=== PATIENT | male | born 1945 | race Caucasian/White ===

== ENCOUNTER 2023-02-15 11:42 | Inpatient (IN) | payer OTHER ==
[2023-02-15 12:44] LABS: Bilirubin Neg (Negative); Blood, Urine 25 (Negative); Clarity Slightly Cloudy (Clear); Glucose, Urine (Dipstick) Normal (Negative); Ketone, Urine Negative (Negative); Leukocyte 500 (Negative); Nitrite Negative (Negative); Protein, Urine (Dipstick) 30 mg/dl (Neg-Trace); Urobilinogen Normal mg/dL (Less than 2); pH, Urine 6.5 (5.0-9.0)
[2023-02-15 12:53] LABS: #Eosinphils 0.1 10x3/uL (0.0-0.5); #Monocytes 0.5 10x3/uL (0.0-1.1); #Neutrophils 6.9 10x3/uL (1.5-8.4); %Basophils 0.3 % (0.0-2.0); %Lymphocytes 12.9 % (18.0-47.0); %Monocytes 5.9 % (0.0-10.0); %Neutrophils 79.3 % (40.0-75.0); Hemoglobin 13.3 g/dL (13.5-17.5); Mean Corpuscular HGB CONC 34.2 g/dL (32.0-36.0); Mean Corpuscular Volume 87.8 fl (81.2-95.1); Mean Platelet Volume 9.1 fl (7.4-10.4); Platelet Count 254 10x3/uL (150-450); RBC Distribution Width 12.6 % (11.5-14.5); Red Blood Cell (RBC) Count 4.43 10x6/uL (4.32-5.72); White Blood Cell (WBC) Count 8.7 10x3/uL (3.5-10.5)
[2023-02-15] MEDS ORDERED: Meclizine HCl 25 MG TAB ONE (13:02)
[2023-02-15 13:12] LABS: ALT (SGPT) 18 U/L (8-55); AST (SGOT) 25 U/L (5-34); Albumin 4.2 g/dL (3.4-4.8); Alkaline Phosphatase 81 U/L (40-110); Anion Gap 19 mmol/L (10-20); BUN (Urea Nitrogen) 23 mg/dL (8.4-25.7); Bilirubin, Total 0.5 mg/dL (0.2-1.2); Calc. Creatinine Clearance 0 mL/min (70-130); Calcium 8.6 mg/dL (7.8-10.44); Carbon Dioxide 19 mmol/L (23-31); Chloride 98 mmol/L (98-107); Estimated GFR 55; Globulin 3.2 g/dL (2.4-3.5); Glucose 103 mg/dL (83-110); Lipase 35 U/L (8-78); Potassium 4.6 mmol/L (3.5-5.1); Protein, Total 7.4 g/dL (5.8-8.1); Sodium 131 mmol/L (136-145)
[2023-02-15 13:22] LABS: Bacteria/HPF 1+ HPF (None Seen); CAUTI Indications for Culture < 2yrs of age; Transitional Epithelial 0-3 HPF (None Seen); WBC/HPF Greater than 50 HPF (0-3); White Blood Cell Cast 0-3 LPF (None Seen)
[2023-02-15 13:24] LABS: Urine Culture Reflex Yes Yes
[2023-02-15 13:34] LABS: CKMB 2.1 ng/mL (0-6.6)
[2023-02-15] MEDS ORDERED: cefTRIAXone (ROCEPHIN) 1 GM VIAL ONE (15:54)
[2023-02-15] MEDS ORDERED: Acetaminophen 325 MG TAB PO PRN (17:31)
[2023-02-15] MEDS ORDERED: Ondansetron PF 4 MG/2 ML Vial IVP PRN (17:31)
[2023-02-15] MEDS ORDERED: Meclizine HCl 12.5 MG TAB PO PRN (17:32)
[2023-02-15 19:17] LABS: Troponin I 0.076 ng/mL (< 0.028)
[2023-02-15] MEDS ORDERED: Amlodipine 10 MG TAB PO SCH (19:45)
[2023-02-15] MEDS: Heparin 5,000 UNITS/ML VIAL SC SCH (22:02)
[2023-02-15] MEDS: Sodium Chloride 0.9% 1,000 ML IV SCH (22:04)
[2023-02-16 03:30] VITALS: BMI 31.9
[2023-02-16 04:10] LABS: #Eosinphils 0.1 10x3/uL (0.0-0.5); #Monocytes 0.5 10x3/uL (0.0-1.1); #Neutrophils 3.7 10x3/uL (1.5-8.4); %Basophils 0.7 % (0.0-2.0); %Eosinophils 2.4 % (0.0-6.0); %Lymphocytes 24.2 % (18.0-47.0); %Monocytes 8.4 % (0.0-10.0); %Neutrophils 64.1 % (40.0-75.0); Hemoglobin 13.1 g/dL (13.5-17.5); Mean Corpuscular HGB CONC 34.9 g/dL (32.0-36.0); Mean Corpuscular Hemoglobin 30.4 pg (27.0-33.0); Mean Platelet Volume 8.9 fl (7.4-10.4); Platelet Count 212 10x3/uL (150-450); RBC Distribution Width 12.6 % (11.5-14.5); Red Blood Cell (RBC) Count 4.31 10x6/uL (4.32-5.72); White Blood Cell (WBC) Count 5.7 10x3/uL (3.5-10.5)
[2023-02-16 04:22] LABS: Anion Gap 13 mmol/L (10-20); BUN (Urea Nitrogen) 18 mg/dL (8.4-25.7); Calc. Creatinine Clearance 77 mL/min (70-130); Calcium 8.9 mg/dL (7.8-10.44); Carbon Dioxide 25 mmol/L (23-31); Chloride 104 mmol/L (98-107); Estimated GFR 66; Glucose 98 mg/dL (83-110); Potassium 4.2 mmol/L (3.5-5.1); Sodium 138 mmol/L (136-145)
[2023-02-16] MEDS: Amlodipine 10 MG TAB PO SCH (08:48)
[2023-02-16] MEDS: hydrALAZINE 25 MG TAB PO SCH ×3 (08:48→19:55)
[2023-02-16] MEDS: Lisinopril 20 MG TAB PO SCH (08:48)
[2023-02-16] MEDS: Heparin 5,000 UNITS/ML VIAL SC SCH ×3 (08:48→19:53)
[2023-02-16] MEDS: Hydrochlorothiazide 25 MG TAB PO SCH (08:49)
[2023-02-16] MEDS: Sodium Chloride 0.9% 1,000 ML IV SCH ×2 (08:52→22:46)
[2023-02-16] MEDS: niCARdipine 25 MG in Sodium Chloride 0.9% 250 ML 250 ML IVPB SCH (15:26)
[2023-02-16] MEDS: cefTRIAXone\\ROCEPHIN 1 GM in Sodium Chloride 0.9% 100 ML IVPB SCH (15:55)
[2023-02-16] MEDS: Ipratropium/Albuterol 3 ML NEB NEB PRN (20:49)
[2023-02-17] MEDS: niCARdipine 25 MG in Sodium Chloride 0.9% 250 ML 250 ML IVPB SCH ×4 (04:14→20:18)
[2023-02-17] MEDS: Sodium Chloride 0.9% 1,000 ML IV SCH ×2 (06:01→20:12)
[2023-02-17] MEDS: Lisinopril 20 MG TAB PO SCH (10:08)
[2023-02-17] MEDS: Amlodipine 10 MG TAB PO SCH (10:09)
[2023-02-17] MEDS: hydrALAZINE 25 MG TAB PO SCH ×3 (10:09→20:10)
[2023-02-17] MEDS: Hydrochlorothiazide 25 MG TAB PO SCH (10:09)
[2023-02-17] MEDS: Heparin 5,000 UNITS/ML VIAL SC SCH ×3 (10:09→20:10)
[2023-02-17] MEDS: Ipratropium/Albuterol 3 ML NEB NEB PRN (14:29)
[2023-02-17] MEDS: cefTRIAXone\\ROCEPHIN 1 GM in Sodium Chloride 0.9% 100 ML IVPB SCH (15:32)
[2023-02-18] MEDS: niCARdipine 25 MG in Sodium Chloride 0.9% 250 ML 250 ML IVPB SCH ×4 (01:11→15:59)
[2023-02-18] MEDS: Ipratropium/Albuterol 3 ML NEB NEB PRN ×2 (04:28→19:20)
[2023-02-18] MEDS: Hydrochlorothiazide 25 MG TAB PO SCH (07:56)
[2023-02-18] MEDS: Heparin 5,000 UNITS/ML VIAL SC SCH (07:56)
[2023-02-18] MEDS: Lisinopril 20 MG TAB PO SCH (07:57)
[2023-02-18] MEDS: hydrALAZINE 25 MG TAB PO SCH ×3 (08:02→20:53)
[2023-02-18] MEDS ORDERED: NIFEdipine XL 30 MG TAB PO SCH ×2 (09:00→14:15)
[2023-02-18] MEDS: Sodium Chloride 0.9% 1,000 ML IV SCH (10:18)
[2023-02-18] MEDS: cefTRIAXone\\ROCEPHIN 1 GM in Sodium Chloride 0.9% 100 ML IVPB SCH (16:06)
[2023-02-19] MEDS: Ipratropium/Albuterol 3 ML NEB NEB PRN ×2 (06:40→15:25)
[2023-02-19] MEDS: Lisinopril 20 MG TAB PO SCH (08:15)
[2023-02-19] MEDS: Hydrochlorothiazide 25 MG TAB PO SCH (08:15)
[2023-02-19] MEDS: hydrALAZINE 25 MG TAB PO SCH (08:17)
[2023-02-19] MEDS ORDERED: NIFEdipine XL 60 MG TAB PO SCH (09:00)
[2023-02-19] MEDS ORDERED: Tamsulosin HCl 0.4 MG CAP PO SCH (10:00)
[2023-02-19 14:20] VITALS: TEMP 98.1
[2023-02-19] MEDS ORDERED: hydrALAZINE 25 MG TAB PO SCH (15:00)
[2023-02-19] MEDS: cefTRIAXone\\ROCEPHIN 1 GM in Sodium Chloride 0.9% 100 ML IVPB SCH (15:03)
[2023-02-19 15:04] VITALS: BP 157/77
[2023-02-20] MEDS ORDERED: Tamsulosin HCl 0.4 MG CAP PO SCH (09:00)
[2023-02-20] MEDS ORDERED: Finasteride 5 MG TAB PO SCH (09:00)
== END 2023-02-19 16:23 | DRG 305 ==
LOC: CSHERS 11:42 → EEVIPCON 11:42 → CSHTELE 17:55 → OBSVTOIN 02-16 14:21 → CSHIMCU 02-16 15:20
PROVIDERS: ADMIT Internal Medicine; ATTEND Internal Medicine
DX: I16.1 Hypertensive emergency (principal); N17.9 Acute kidney failure, unspecified; N39.0 Urinary tract infection, site not specified; J44.9 Chronic obstructive pulmonary disease, unspecified; I12.9 Hypertensive chronic kidney disease with stage 1 through stage 4 chronic kidney disease, or unspecified chronic kidney disease; N18.30 Chronic kidney disease, stage 3 unspecified; Z87.442 Personal history of urinary calculi; R77.8 Other specified abnormalities of plasma proteins; Z90.49 Acquired absence of other specified parts of digestive tract; Z90.89 Acquired absence of other organs; Z88.8 Allergy status to other drugs, medicaments and biological substances; N40.0 Benign prostatic hyperplasia without lower urinary tract symptoms
CPT/HCPCS: 36415; 70450; 71045; 80048; 80053; 81001; 82553; 83690; 84484; 85025; 87086; 93005; 93306; 94640; 94760; 96365; 96372; G0378; J0696; J1644; J3490; J7050; J7620

== ENCOUNTER 2023-10-27 16:57 | Emergency (ER) | payer OTHER ==
[2023-10-27 17:42] LABS: #Eosinphils 0.1 10x3/uL (0.0-0.5); #Monocytes 0.3 10x3/uL (0.0-1.1); #Neutrophils 3.4 10x3/uL (1.5-8.4); %Basophils 0.4 % (0.0-2.0); %Eosinophils 2.4 % (0.0-6.0); %Monocytes 6.3 % (0.0-10.0); %Neutrophils 69.5 % (40.0-75.0); Hematocrit 38.2 % (38.8-50.0); Hemoglobin 13.2 g/dL (13.5-17.5); Mean Corpuscular HGB CONC 34.6 g/dL (32.0-36.0); Mean Corpuscular Hemoglobin 30.3 pg (27.0-33.0); Mean Corpuscular Volume 87.8 fl (81.2-95.1); Mean Platelet Volume 8.3 fl (7.4-10.4); Platelet Count 211 10x3/uL (150-450); Red Blood Cell (RBC) Count 4.35 10x6/uL (4.32-5.72)
[2023-10-27 18:27] LABS: ALT (SGPT) 13 U/L (8-55); AST (SGOT) 13 U/L (5-34); Albumin 3.9 g/dL (3.4-4.8); Alkaline Phosphatase 55 U/L (40-110); Anion Gap 12 mmol/L (10-20); BUN (Urea Nitrogen) 22 mg/dL (8.4-25.7); Bilirubin, Total 0.3 mg/dL (0.2-1.2); Calc. Creatinine Clearance 0 mL/min (70-130); Calcium 8.3 mg/dL (7.8-10.44); Carbon Dioxide 25 mmol/L (23-31); Chloride 103 mmol/L (98-107); Estimated GFR 59; Globulin 2.7 g/dL (2.4-3.5); Glucose 108 mg/dL (83-110); Potassium 4.4 mmol/L (3.5-5.1); Protein, Total 6.6 g/dL (5.8-8.1); Sodium 136 mmol/L (136-145)
[2023-10-27 18:33] LABS: Troponin I 0.024 ng/mL (< 0.028)
== END 2023-10-27 21:06 ==
LOC: CSHERS 16:57 → EEVIPCON 16:57 → CSHERS 21:06
DX: I95.1 Orthostatic hypotension (principal); J44.9 Chronic obstructive pulmonary disease, unspecified; I12.9 Hypertensive chronic kidney disease with stage 1 through stage 4 chronic kidney disease, or unspecified chronic kidney disease; N18.9 Chronic kidney disease, unspecified; Z87.891 Personal history of nicotine dependence; Z79.82 Long term (current) use of aspirin; Z79.899 Other long term (current) drug therapy
CPT/HCPCS: 36415; 71045; 80053; 83605; 83735; 83880; 84484; 85025; 93005